=== PATIENT | female | born 1950 | race Caucasian/White ===

== ENCOUNTER 2025-08-20 05:08 | Emergency (ER) | payer MEDICARE, OTHER ==
[~2025-08-20] VITALS: Ht 165.1 cm; Wt 67.1 kg
[2025-08-20 05:10] VITALS: TEMP 97.9
--- NOTE | 2025-08-20 08:44 | Physician Documentation ---
History of Present Illness ~ General Chief Complaint: Eye Pain Stated Complaint: SWOLLEN EYE Time Seen by MD: 08:14 [place] Medical Doctor[place] Source: patient (6) History of Present Illness Initial Comments Patient comes in for evaluation of right eye swelling and redness. She reports it started two days ago and got worse last night. She has noted minimal drainage, and did not wake up with her lashes stuck together. When asked about her vision she reports that it is cloudy. no prior problems with this, and no ill contacts. Medication Reconciliation Allergies: Coded Allergies: No Known Allergies (Unverified , 08/20/25) Past Medical History Past Medical History: Atrial Fibrillation, Hypertension Smoking Status: Never smoker Alcohol Use: Occasionally Drug Use: none Review of Systems All Other Systems at this time: Reviewed and Negative Physical Exam Physical Exam Vital Signs: Temperature: 97.9, Heart Rate: 70, Respiratory Rate: 18, BP: 170/94, Pulse Oximetry: 97, Weight: 67.100 Physical Exam General: Pt is awake, alert, oriented x4 in no acute distress and well appearing. Head: Normocephalic and atraumatic. Eyes: Left eye normal. Right eye with mild edema and mild erythema over the upper lid, no lower lid changes. Conjunctiva slightly injected. Minimal drainage noted. Pupils are PEERL. Extraocular movements are intact. Visual acuity is 20/30 OS, and 20/30 OD, with her corrective lenses (my exam). Fluorescein staining and evaluation with the Wood's lamp shows no corneal uptake. ENT: Mucous membranes moist. Neck: Supple. Chest: Clear to auscultation bilaterally, without rales, rhonchi, or wheezes. There is no accessory muscle use or retractions. Cardiac: Regular rate and rhythm without murmurs, gallops or rubs. Palpation of the chest wall is normal. Abd: Soft, nondistended, nontender, with normoactive bowel sounds. No guarding or rebound. Extremities: Within normal limits without cyanosis, clubbing, or edema. Skin: [place], warm and dry with no significant rash appreciated. Neuro: Cranial nerves II-XII grossly intact. The gait is normal. Progress Results/Orders Results/Orders Vital Signs 08/20/25 05:10 Temp 97.9 Pulse 70 Resp 18 B/P (MAP) 170/94 Pulse Ox 97 Medical Decision Making Additional information obtaine: N/A Findings Differential Diagnosis Patient presenting with slight redness and swelling to the upper lid, and a sensation of irritation. Visual acuity testing shows that the patient has near equal visual acuity in affected and unaffected eyes. She has no afferent pupillary defect, no foreign body noted with double lid eversion, and no evidence for corneal abrasion. Cornea is clear without evidence of any haziness or anterior chamber reaction. Symptoms likely consistent with a viral or allergic conjunctivitis, and we will be treated with antibiotic topical drops. Patient is driving from [facility] to [place], will be driving 10 hours today. She will be provided with the antibiotic drops, understands that if she has any worsening of her symptoms she should stop immediately for further evaluation and management. Departure Time of Disposition: 08:42 Disposition: HOME / SELF CARE / HOMELESS Impression: Primary Impression: Conjunctivitis Qualified Codes: H10.31 - Unspecified acute conjunctivitis, right eye Additional Instructions: Your symptoms may be contagious; keep your area wiped down with antibacterial wipes and avoid touching others. You have been provided with antibiotic topical ointment which you should use every 4-6 hours in the affected eye until two days after your symptoms improve. Please stop immediately for further evaluation should you develop increasing swelling or redness, redness that extends onto the lower lid and cheek, drainage that looks like pus, fever, worsening vision, or any other concerns. Referrals: NO PRIMARY CARE PROVIDER (PCP) Education Educated: Patient Educated regarding: diagnosis, treatment Signature Scribe Signature: Attestation: POOL PEREZ MD Aug 20, 2025 08:44
[2025-08-20] MEDS: erythromycin ophthalmic ointment 1gm tube RIGHTEYE ONE (08:58)
[2025-08-20 08:59] VITALS: BP 170/96; PULSE 64; RESP 18; O2SAT 99
== END 2025-08-20 09:01 | disposition home or self-care (01) ==
LOC: ER 05:09
DX: H10.9 Unspecified conjunctivitis (principal); I48.91 Unspecified atrial fibrillation; I10 Essential (primary) hypertension; Z72.89 Other problems related to lifestyle
CPT/HCPCS: 99283